=== PATIENT | female | born 1945 | race Asian ===

== ENCOUNTER 2018-03-26 03:44 | Outpatient (CLI) | payer MEDICARE | END 2018-03-26 23:59 | disposition home or self-care (01) | LOC: DIABETIC 03:44 | PROVIDERS: ATTEND Internal Medicine | DX: E11.9 Type 2 diabetes mellitus without complications (principal) | CPT/HCPCS: G0109 ==

== ENCOUNTER 2018-04-23 08:30 | Outpatient (CLI) | payer MEDICARE | END 2018-04-23 23:59 | disposition home or self-care (01) | LOC: DIABETIC 08:30 | PROVIDERS: ATTEND Internal Medicine | DX: E11.9 Type 2 diabetes mellitus without complications (principal) | CPT/HCPCS: G0109 ==

== ENCOUNTER 2019-11-08 11:07 | Emergency (ER) | payer MEDICARE, BC ==
[~2019-11-08] VITALS: Ht 167.6 cm; Wt 80.0 kg
[2019-11-08 12:17] VITALS: BP 143/70
[2019-11-08] MEDS ORDERED: pantoprazole 40mg Tablet.DR PO ONE (13:10)
[2019-11-08] MEDS ORDERED: HYDROcodone/acetaminophen 5mg/325mg tablet PO ONE (13:10)
[2019-11-08] MEDS ORDERED: ibuprofen 200mg tablet PO ONE (13:10)
[2019-11-08] MEDS ORDERED: ondansetron 4mg rapidly disintigrating tab PO ONE (13:10)
[2019-11-08] MEDS ORDERED: TETanus/Pertussis (Acell)/Diphther VAC/PF (Tdap-Adult) 0.5ml syringe IMVAC ONE (13:15)
[2019-11-08] MEDS ORDERED: HYDR-3965 PO (13:18)
[2019-11-08] MEDS ORDERED: PANT-47 PO (13:18)
== END 2019-11-08 13:55 | disposition home or self-care (01) ==
LOC: ER 11:07
DX: S05.12XA Contusion of eyeball and orbital tissues, left eye, initial encounter (principal); S05.11XA Contusion of eyeball and orbital tissues, right eye, initial encounter; S80.812A Abrasion, left lower leg, initial encounter; S80.811A Abrasion, right lower leg, initial encounter; M25.562 Pain in left knee; Z88.0 Allergy status to penicillin; Z79.899 Other long term (current) drug therapy; W10.8XXA Fall (on) (from) other stairs and steps, initial encounter; Y93.89 Activity, other specified; Y92.89 Other specified places as the place of occurrence of the external cause; Y99.8 Other external cause status
CPT/HCPCS: 73564; 90471; 99284

== ENCOUNTER 2025-03-25 06:45 | Day surgery (SDC) | payer BC ==
[2025-03-25] VITALS (11 sets, daily range): BP systolic 137–225; BP diastolic 62–125; PULSE 60–73; RESP 13–20; TEMP 99.2; O2SAT 92–98
[~2025-03-25] VITALS: Ht 167.6 cm; Wt 82.7 kg
[~2025-03-25 06:45] MED LIST: PANT-47 PO
[2025-03-25] MEDS ORDERED: THY60T PO (07:40)
[2025-03-25] MEDS ORDERED: BUPR-726 PO (07:40)
[2025-03-25] MEDS ORDERED: ASPI-1265 PO (07:40)
[2025-03-25 07:47] LABS: BASOPHILS % (AUTO) 0.8 % (0-1); EOSINOPHILS # (AUTO) 0.1 X10'3 (0-0.9); EOSINOPHILS % (AUTO) 1.3 % (0-6); HEMATOCRIT 43.5 % (35.0-45.0); LYMPHOCYTES # (AUTO) 1.1 X10'3 (1.1-4.8); LYMPHOCYTES % (AUTO) 18.1 % (21-51); MEAN CORPUSCULAR HGB CONC 34.4 g/dL (33.0-36.5); MEAN CORPUSCULAR VOLUME 95.9 FL (78-98); MONOCYTES # (AUTO) 0.4 X10'3 (0-0.9); MONOCYTES % (AUTO) 6.9 % (2-12); NEUTROPHILS # (AUTO) 4.4 X10'3 (1.8-7.7); NEUTROPHILS % (AUTO) 72.9 % (42-75); PLATELET COUNT 247 X10'3 (140-440); RED BLOOD COUNT 4.54 X10'6 (4.20-5.60); RED CELL DISTRIBUTION WIDTH 12.8 % (11.5-14.5)
[2025-03-25 08:01] LABS: ALANINE AMINOTRANSFERASE 45 U/L (12-78); ALBUMIN 3.8 G/DL (3.4-5.0); ALBUMIN/GLOBULIN RATIO 0.9 (1.1-1.5); ALKALINE PHOSPHATASE 85 IU/L (46-116); ANION GAP 8 (8-16); ASPARTATE AMINO TRANSFERASE 36 U/L (10-37); BILIRUBIN,TOTAL 0.7 MG/DL (0.1-1.0); BLOOD UREA NITROGEN 19 MG/DL (7-18); BUN/CREATININE RATIO 18.8 (10.0-20.0); CALCIUM 8.6 MG/DL (8.5-10.1); CHLORIDE 105 MMOL/L (99-107); CREATININE 1.01 MG/DL (0.40-0.90); GLUCOSE 137 MG/DL (70-104); SODIUM 140 MMOL/L (135-145); TOTAL CARBON DIOXIDE 26.7 MMOL/L (24-32); eCRCL 41 ML/MIN; eGFR 53 ML/MIN
[2025-03-25] MEDS: clindamycin-Cleocin 900mg/D5W 50 ML IV ONE (08:28)
[2025-03-25] MEDS: metoprolol tartrate 12.5mg (1/2 tablet) PO ONE (08:57)
[2025-03-25] MEDS ORDERED: fentaNYL/PF 50MCG/1 ML 2ML syringe ONE (09:33)
[2025-03-25] MEDS ORDERED: LIDOcaine 1% W/epiNEPHrine 1:100,000 20ml vial ONE (09:33)
[2025-03-25] MEDS ORDERED: midazolam 1 mg/ML 2ml injection ONE ×3 (09:33→10:35)
[2025-03-25] MEDS ORDERED: vancomycin 1,000mg inj ONE (10:13)
[2025-03-25] MEDS: clindamycin 600mg/D5W 50ml 50 ML IV ONE (11:56)
[2025-03-25] MEDS: normal saline 1000ml 1,000 ML IV SCH (11:57)
[2025-03-25] MEDS ORDERED: clindamycin 600mg/D5W 50ml 50 ML IV SCH (16:00)
[2025-03-27] MEDS ORDERED: LATA2.5D14 RIGHTEYE (14:59)
[2025-03-29] MEDS ORDERED: LOSA25TA41 PO (07:28)
[2025-03-29] MEDS ORDERED: METF-1203 PO ×2 (07:28→10:43)
[2025-03-29] MEDS ORDERED: CEFD300C3 PO ×3 (07:29→12:12)
[2025-03-29] MEDS ORDERED: LACT1CAP26 PO ×2 (07:29→10:43)
[2025-03-29] MEDS ORDERED: BUPR-94 PO (10:43)
[2025-03-29] MEDS ORDERED: XAL0.005OS RIGHTEYE (10:43)
[2025-03-29] MEDS ORDERED: LOSA50TA64 PO (10:43)
[2025-03-29] MEDS ORDERED: THYR30TA21 PO (10:43)
[2025-03-29] MEDS ORDERED: ASPI-1265 PO (10:43)
[2025-03-29] MEDS ORDERED: MECL-231 PO (12:12)
== END 2025-03-25 14:55 | disposition home or self-care (01) ==
LOC: SSTAY O 06:45
PROVIDERS: ATTEND Thoracic Surgery (Cardiothoracic Vascular Surgery)
DX: I44.2 Atrioventricular block, complete (principal); R55 Syncope and collapse; I10 Essential (primary) hypertension; R00.1 Bradycardia, unspecified; Z79.899 Other long term (current) drug therapy
CPT/HCPCS: 33208; 36415; 71045; 80053; 85025; 93005; 99152; 99153; C1785; C1898; J2250; J3010; J3370; J3490; J7030; A4565; A6258; A6449